=== PATIENT | male | born 1975 | race Caucasian/White ===

== ENCOUNTER → 2018-01-01 14:24 | Outpatient (CLI) | payer OTHER, SELFPAY ==
[2018-01-01 14:49] LABS: Basophils # 0.1 K/mm3 (0-0.2); Basophils % 0.7 % (0.1-2.0); Eosinophils # 0.5 K/mm3 (0.0-0.4); Eosinophils % 6.6 % (0.1-12.0); Hematocrit 41.8 % (42.0-52.0); Hemoglobin 14.1 g/dL (14.1-18.0); Lymphocytes # 2.2 K/mm3 (0.7-4.5); Lymphocytes % 27.4 K/mm3 (10-50); Mean Corpuscular HGB Conc 33.8 g/dL (31.8-35.4); Mean Corpuscular Hemoglobin 31.2 pg (27.0-31.2); Mean Corpuscular Volume 92.4 fl (80-94); Mean Platelet Volume 7.3 fl (7.4-10.4); Monocytes # 0.4 K/mm3 (0.1-1.0); Monocytes % 5.1 % (1.7-9.3); Neutrophils # 4.9 K/mm3 (1.8-7.8); Neutrophils % 60.3 % (37.0-80.0); Platelet Count 258 K/mm3 (142-424); Red Blood Count 4.52 M/mm3 (4.60-6.20); Red Cell Distribution Width 12.4 % (11.5-17.5); White Blood Count 8.1 K/mm3 (4.8-10.8)
[2018-01-01 18:21] LABS: Alanine Aminotransferase 29 U/L (12-78); Albumin/Globulin Ratio 1.5 (1.1-1.8); Alkaline Phosphatase 91 U/L (46-116); Anion Gap 9.5 mEq/L (5-15); Aspartate Amino Transferase 13 U/L (15-37); Bilirubin,Total 0.5 mg/dL (0.2-1.0); Blood Urea Nitrogen 11 mg/dL (7-18); Calcium 8.9 mg/dL (8.5-10.1); Carbon Dioxide 29 mmol/L (21.0-32.0); Chloride 99 mmol/L (98-107); Creatinine,Serum 0.95 mg/dL (0.70-1.30); Estimated Glomerular Filt Rate 86 ml/min (>60); GFR (African American) 104 ML/MIN (>60); Globulin 2.6 gm/dl (1.3-3.2); Glucose 155 mg/dL (74-106); Potassium 4.5 mmoL/L (3.5-5.1); Sodium 133 mmol/L (136-145); Total Protein,Serum 6.6 gm/dL (6.4-8.2)
== END ==
PROVIDERS: PCP Family Medicine; Visit Provider Otolaryngology
DX: Z01.810 Encounter for preprocedural cardiovascular examination (principal); Z01.812 Encounter for preprocedural laboratory examination
CPT/HCPCS: 36415; 80053; 85025; 93005

== ENCOUNTER 2018-01-09 08:04 | Day surgery (SDC) | payer OTHER, SELFPAY ==
[2018-01-07 12:37] VITALS: BMI 23.7
[2018-01-09] VITALS (8 sets, daily range): BP systolic 103–119; BP diastolic 59–73; PULSE 63–79; RESP 16–18; TEMP 36.1–36.7; O2SAT 93–98
--- NOTE | 2018-01-09 10:30 | P.PN_ITS ---
[facility] Anesthesia Checklist - Patient Identification Patient Identification: Arm Band - Structural Data Admitted From: Home Planned Operative Procedure/s: microlaryngoscopy, removal of cyst posterior pharnx Consent for Planned Operative Procedure(s) Verified: Yes Verified Documents: Surgical Consent, History and Physical - NPO Status Verified Time NPO: 00:00 - Additional verifications Anesthesia Reactions: No - Airway Assessment C-Spine Mobility Assessed: Yes (mp2) TMJ Mobility Assessed: Yes Dentition: Good Dentition - Neurological Assessment Level of Consciousness: Awake, Alert - Anesthesia Plan Anesthesia Risk discussed: Yes Anesthesia Plan: Verified ASA Class: II Anesthesia Type: General [facility] Anesthesia HX I have reviewed the patient's past medical history: Yes Medical History: Reports:: Anxiety, Diabetes Mellitus Type 2 (NIDDM), Gastroesophageal Reflux Disease(GERD), Hypertension Denies:: Cancer, Diabetes Mellitus Type 1, MRSA, Seizures Other Medical History: Reports: Other (smoker). Denies: Blood Transfusion Reaction Laterality Cases: Bilateral: Tonsillectomy, Other Amputation: No Fractures: No *Family Hx:: Asthma, Diabetes, Heart Attack, Stroke
--- NOTE | 2018-01-09 10:30 | HMH.ANESI ---
[facility] Anesthesia Record Part I Intake, IV Amount: 600 Estimated blood loss (mL): 5 Urine output (mL): 0 Blood Pressure: 118/66 SaO2: 96 Pulse Rate: 79 Respiratory Rate: 16 Temperature: 97.8 F Patient is:: Drowsy, Stable Stable to PACU at:: 10:20
--- NOTE | 2018-01-09 10:30 | HMH.ANESII ---
[facility] Anesthesia Record Part II Discharge Time: 10:50 Destination: [facility] PACU nurse assessment reviewed?: Yes Patient Condition:: Good Anesthesia Complications:: None
--- NOTE | 2018-01-09 10:31 | P.PN_ITS ---
[facility] Anesthesia Record Part II Discharge Time: 10:50 Destination: [facility] PACU nurse assessment reviewed?: Yes Patient Condition:: Good Anesthesia Complications:: None
--- NOTE | 2018-01-09 10:56 | PC.NURSE ---
1020-10 liters humidified O2 applied upon arrival to PACU. FSBS 131
--- NOTE | 2018-01-09 15:12 | HMH.OPNOTE ---
Date of procedure: 01/09/18 Pre-op Diagnosis:: Cyst in pharynx Post-op diagnosis:: same Procedure performed:: Microlaryngoscopy with removal of cyst in pharynx Surgeon:: Josef Lanza MD RADIO INSTALLER:: Matthew Ward Anesthesia: GETA Estimated blood loss (mL): 1 Operative findings:: cyst in pharynx Operative note:: With the patient under general anesthetic using the SlimLine laryngoscope,and the 10 mm telescope, the oral cavity, hypopharynx, larynx and base of tongue were all examined. There was an epidermoid cystic area in the right lower pharyngeal area. Using the large laryngoscopy cup forceps, and the telescope, after the lesion was photographed, the lesion was removed in entirety and submitted. Bleeding was stopped with topical epinephrine. Blood loss was less than 2 cc. The remainder of the examination was noncontributory. The patient tolerated the procedure well and was sent to recovery in good general condition. Condition: stable Disposition: PACU Specimens:: cyst Complications:: none
--- NOTE | 2018-01-09 15:15 | P.OP_ITS ---
Date of procedure: 01/09/18 Pre-op Diagnosis:: Cyst in pharynx Post-op diagnosis:: same Procedure performed:: Microlaryngoscopy with removal of cyst in pharynx Surgeon:: Josef Lanza MD HEAD TURNING MACHINE OPERATOR:: Matthew Ward Anesthesia: GETA Estimated blood loss (mL): 1 Operative findings:: cyst in pharynx Operative note:: With the patient under general anesthetic using the SlimLine laryngoscope,and the 10 mm telescope, the oral cavity, hypopharynx, larynx and base of tongue were all examined. There was an epidermoid cystic area in the right lower pharyngeal area. Using the large laryngoscopy cup forceps, and the telescope, after the lesion was photographed, the lesion was removed in entirety and submitted. Bleeding was stopped with topical epinephrine. Blood loss was less than 2 cc. The remainder of the examination was noncontributory. The patient tolerated the procedure well and was sent to recovery in good general condition. Condition: stable Disposition: PACU Specimens:: cyst Complications:: none
[2018-01-16 15:04] LABS: POC Glucose,Bedside 126 mg/dL (70-110)
[2018-01-16 15:04] LABS: POC Glucose,Bedside 131 mg/dL (70-110)
== END 2018-01-09 11:21 | disposition home or self-care (01) ==
LOC: OR 08:06
PROVIDERS: Family Provider Family Medicine; PCP Family Medicine; Visit Provider Otolaryngology
PROC: (CPT 42808; principal; 2018-01-09 10:30)
DX: J39.2 Other diseases of pharynx (principal)
CPT/HCPCS: 42808; 82962; 96374; J2405

== ENCOUNTER → 2019-08-12 12:02 | Outpatient (CLI) | payer OTHER, SELFPAY ==
--- NOTE | 2019-08-12 12:10 | XR_ITS ---
PROCEDURE: XR CHEST 2V CLINICAL HISTORY: BRONCHITIS Smoker, bronchitis COMPARISON: CXR CHEST(2 VIEWS-NOT PORTABLE) from 03/09/2015 XR CHEST 2V from 08/02/2019 FINDINGS: The cardiomediastinal silhouette and pulmonary vascularity are within normal limits. The lungs are clear without infiltrates, suspicious nodules, or pleural effusions. No acute bony abnormalities. IMPRESSION: No acute findings. Dictated by: Sukhwinder Riley MD 08/12/2019 12:47 Electronically signed by Sukhwinder Riley MD in [place] 08/12/2019 12:47
== END ==
PROVIDERS: PCP Family Medicine; Visit Provider Nurse Practitioner Family
DX: J40 Bronchitis, not specified as acute or chronic (principal)
CPT/HCPCS: 71046

== ENCOUNTER → 2022-08-13 18:17 | Outpatient (CLI) | payer OTHER, SELFPAY ==
--- NOTE | 2022-08-13 18:27 | XR_ITS ---
PROCEDURE INFORMATION: Exam: XR Cervical Spine Exam date and time: 08/13/2022 6:28 PM Age: 46 years old Clinical indication: Radiculopathy; Cervical region TECHNIQUE: Imaging protocol: Radiologic exam of the cervical spine. Views: 2 or 3 views. COMPARISON: DX XR CHEST 2V 08/12/2019 12:12 PM FINDINGS: Bones/joints: Loss of the cervical lordotic curvature. Cervical spondylosis with mild changes of disc degeneration most pronounced at C5-C6. Soft tissues: Unremarkable. IMPRESSION: Cervical spondylosis with mild changes of disc degeneration most pronounced at C5-C6.
== END ==
PROVIDERS: PCP Family Medicine; Visit Provider Family Medicine
DX: M54.12 Radiculopathy, cervical region (principal); M53.82 Other specified dorsopathies, cervical region
CPT/HCPCS: 72040

== ENCOUNTER 2023-11-29 07:47 | Emergency (ER) | payer BC, SELFPAY ==
[2023-11-29 07:49] VITALS: BP 169/94; PULSE 83; RESP 15; TEMP 36.7; O2SAT 96; BMI 23.1
--- NOTE | 2023-11-29 07:55 | PC.NURSE ---
Dr. Victor at [facility] for pt eval
--- NOTE | 2023-11-29 07:57 | XR_ITS ---
FINAL REPORT CLINICAL HISTORY: cough, wheezing FINDINGS: TWO-VIEW CHEST The heart size is normal. The mediastinum is normal. There is bronchial wall thickening consistent with bronchitis. There is no pneumothorax. IMPRESSION: Bronchitis. Reviewed, Interpreted and Dictated by He Cordoba III, MD Transcribed by Janet Bates Authenticated and [facility]
--- NOTE | 2023-11-29 07:58 | ED_ITS ---
Discharge Plan Disposition Patient Disposition: Home, Self-Care Prescriptions Prescriptions: New prednisone 50 mg tablet 50 mg PO DAILY 4 Days Qty: 4 0RF Rx Instructions: Please take your first dose starting 11-30-2023 azithromycin 500 mg tablet See Rx Instructions .ROUTE .COMPLEX Qty: 3 0RF Rx Instructions: For 250 mg dose pack: take 500 mg today (day 1), then 250 mg for 4 days (days 2-5) No Action metformin 1,000 mg tablet 1,000 mg PO BID metoprolol tartrate 100 mg tablet 100 mg PO BID lisinopril-hydrochlorothiazide 20-12.5 mg tablet 1 tab PO ONCE omeprazole magnesium [Prilosec OTC] 20 mg tablet,delayed release (DR/EC) 20 mg PO ONCE citalopram 20 MG tablet 10 mg PO DAILY Patient Comments: benzonatate 100 MG capsule 100 mg PO HS 10 Days Qty: 10 0RF Rx Instructions: Take at bedtime to help with cough cefdinir 300 MG capsule 300 mg PO BID Qty: 20 0RF fluticasone propionate 120 SPR/BOT bottle 2 spr NS DAILY Qty: 1 0RF Rx Instructions: each nostril daily azithromycin 250 MG tablet 1 tab PO DIRECTED albuterol sulfate 8.5 GM HFA aerosol inhaler 1 puff inhalation Q4-6H Patient Comments: INHALE 1 TO 2 PUFFS BY MOUTH 4 TIMES DAILY NEEDED hwwkswdjmwhjlzm-uonojxwau-PM syrup 1 dose PO DIRECTED levofloxacin 500 MG tablet 500 mg PO DAILY Qty: 7 0RF methylprednisolone 4 MG tablets,dose pack 4 mg PO DIRECTED 6 Days Qty: 21 0RF Referrals Follow up/Referrals: Nicholas Gómez MD [Primary Care Provider] - See instructions Activity Restrictions/Add. Instructions Additional Instructions/Restrictions: At this time it was felt you are safe to be discharged home. If new or worse matt symptoms please do not hesitate to return the emergency department. If symptoms persist please follow-up with your family doctor as you are able. Please take your medications as prescribed. Clinical Impressions Clinical Impression: Viral infection of lower respiratory system, Bilateral wheezing Discharge ED Provider: Andrés Victor General Chief Complaint: Shortness of Breath/Dyspnea Stated Complaint: SOA, congestion, Time Seen by Provider: 11/29/23 07:47 Mode of Arrival: Ambulatory Source of Information: Patient Limitations: No Limitations Description of Symptoms (Recalled from ER Triage Doc. by RN): pt presents to ED with c/o shortness of air. pt states I cant get air in or out . pt was seen in [facility] in [place] on saturday, prescribed cough pills and an abx. pt reports taking both with no relief. pt reports symptoms ongoing for alsmot 12 days but symptoms progressing getting worse. History of Present Illness HPI narrative: Patient is a 48-year-old male, smoker with past medical history of yearly recurrent bronchitis, not on oxygen at home, no formal diagnosis of COPD who presents emergency department for evaluation of shortness of breath. Patient has had onset of symptoms including cough, drainage, poor sleep since Saturday. He presented to outside clinic which discharged home with cough medicine and antibiotics, no steroids. Due to persistent dyspnea he presents here for continued evaluation. No other acute complaints at this time. Related Data Home Medications Medication Instructions Recorded Confirmed lisinopril 20 1 tab PO ONCE BLOOD PRESSURE 12/23/17 08/02/19 mg-hydrochlorothiazide 12.5 mg tablet metformin 1,000 mg tablet 1,000 mg PO BID Diabetes 12/23/17 08/02/19 metoprolol tartrate 100 mg tablet 100 mg PO BID BLOOD PRESSURE 12/23/17 08/02/19 omeprazole magnesium 20 mg 20 mg PO ONCE GERD 12/23/17 01/09/18 tablet,delayed release (Prilosec OTC) citalopram 20 mg tablet 10 mg PO DAILY Anxiety 01/07/18 08/02/19 albuterol sulfate 90 mcg/actuation 1 puff inhalation Q4-6H SOA, co ugh 08/02/19 08/02/19 aerosol inhaler azithromycin 250 mg tablet 1 tab PO DIRECTED Cough/cold 08/02/19 08/02/19 pbgmmprifdzbhzz-uduohveipyhpdmr-UL 1 dose PO DIRECTED Cough/cold 08/02/19 08/02/19 2 mg-30 mg-10 mg/5 mL oral syrup Previous Rx's Medication Instructions Recorded levofloxacin 500 mg tablet 500 mg PO DAILY #7 tabs 08/02/19 methylprednisolone 4 mg tablets in 4 mg PO DIRECTED 6 days ##21 08/02/19 a dose pack benzonatate 100 mg capsule 100 mg PO HS 10 days #10 caps 08/09/19 cefdinir 300 mg capsule 300 mg PO BID #20 caps 08/09/19 fluticasone propionate 50 2 spr NS DAILY ##1 08/09/19 mcg/actuation nasal spray,suspension azithromycin 500 mg tablet See Rx Instructions PO .COMPLEX #3 11/29/23 tabs prednisone 50 mg tablet 50 mg PO DAILY 4 days #4 tabs 11/29/23 Allergies Allergy/AdvReac Type Severity Reaction Status Date / Time No Known Allergies Allergy Verified 01/24/18 11:06 [facility] Disclaimer: The information contained in this section may have been updated after the patient was seen, as this information can be updated by other users. Social History Smoking Status: Current every day smoker tobacco type: cigarettes packs per day: 1 second hand exposure: Yes alcohol intake: never substance use type: denies use current occupational status: employed Travel in the last 8 weeks: None household members: spouse housing: house current occupation: [employer] ROS Obtained: Yes Systems reviewed as appropriate & no additional complaints except as documented Physical Exam General General appearance: alert and in no apparent distress Head Head exam: atraumatic and normocephalic Eye Eye exam: Present PERRL and EOMI ENT ENT exam: Present mucous membranes moist Neck Neck exam: Present normal inspection Chest Chest inspection: Present normal inspection and symmetric chest wall rise Respiratory Respiratory exam: Present wheezes (Expiratory phase wheezing in all lung lassiter left greater than right); Absent respiratory distress Cardiovascular Cardiovascular exam: Present regular rate and normal rhythm Abdominal Exam Abdominal exam: Present soft; Absent tenderness Extremities Exam Extremities exam: Present normal inspection Neurological Exam Neurological exam: Present alert Psychiatric Psychiatric exam: Present normal affect Skin Skin exam: Present warm and dry HEART Score HEART Score HEART Score assessment performed?: No Critical Care Critical Care Time Critical Care Time: No Medical Decision Making Valeriano Inquiry Pt receiving controlled substance: No Vital Signs Vital Signs: 11/29/23 07:49 11/29/23 08:00 Temperature 98.0 F Temperature Source Oral Pulse Rate 82 Pulse Rate [Left Radial] 83 Respiratory Rate 15 Blood Pressure 140/92 H Blood Pressure [Right Arm] 169/94 H Blood Pressure Mean 108 Blood Pressure Mean [Right Arm] 119 02 Sat by Pulse Oximetry 96 96 Oxygen Delivery Method Room Air Lab Data Labs: Lab Results 11/29/23 07:05: SARS-CoV-2 (PCR) Not detected, Influenza A Untype (PCR) Not detected, Influenza Type B (PCR) Not detected Response Orders (Tests/Meds): ED MEDICATIONS Discontinued Medications Generic Name Dose Route Start Last Admin Trade Name Kailey PRN Reason Stop Dose Admin Albuterol/Ipratropium 9 ml 11/29/23 07:57 11/29/23 08:08 Ipratropium/Albuterol 3 Ml Neb IH 11/29/23 07:58 9 ml ONCE ONE Administration Prednisone 40 mg 11/29/23 07:57 11/29/23 08:08 Prednisone 20mg Tab PO 11/29/23 07:58 40 mg ONCE ONE Administration ORDERS Category Date Time Status CXR --portable [XR chest portable] Stat Exams 11/29/23 07:57 Taken Rapid PCR Covid and Flu A/B Stat Lab 11/29/23 07:05 Completed MDM Narrative Medical Decision Narrative: In summary patient is a 48-year-old male with past medical history described above presents emergency department for evaluation of shortness of breath and cough. Patient is hemodynamically stable nontoxic-appearing upon arrival, afebrile with expiratory phase wheezing in all lung lassiter left greater than right. Differential diagnosis includes bronchitis, pneumonia, COPD, among others. Workup will be conducted with viral swab and chest x-ray. Hematologic labs were considered but will be deferred. Initial interventions include oral steroids, DuoNebs x 3. Workup reviewed by me, viral swab negative. Chest x-ray informally interpreted by me, no acute lobar opacities or large pneumothorax. Upon repeat evaluation patient had significantly improved air movement. Patient has bronchodilators at home will be discharged with a course of steroids and azithromycin for its anti-inflammatory effects and was given return precautions.
[2023-11-29 08:00] VITALS: BP 140/92; PULSE 82; O2SAT 96
[2023-11-29 08:02] LABS: Coronavirus 19, PCR Not Detected (NotDetected); Influenza A, PCR Not Detected (NotDetected); Influenza B, PCR Not Detected (NotDetected)
[2023-11-29] MEDS: predniSONE 20MG TAB 40 MG PO (08:08)
[2023-11-29] MEDS: IPRATROPIUM/ALBUTEROL 3 ML NEB 9 ML IH (08:08)
[2023-11-29 08:57] VITALS: BP 142/91; PULSE 89; RESP 16; TEMP 36.7; O2SAT 96
== END 2023-11-29 08:57 | disposition home or self-care (01) ==
PROVIDERS: Emergency Provider Emergency Medicine; PCP Family Medicine
DX: R06.02 Shortness of breath (principal); R05.9 Cough, unspecified; J22 Unspecified acute lower respiratory infection; F17.210 Nicotine dependence, cigarettes, uncomplicated
CPT/HCPCS: 71045; 87636; 99283

== ENCOUNTER 2024-07-28 15:32 | Emergency (ER) | payer BC, SELFPAY ==
[2024-07-28 15:33] VITALS: BP 152/97; PULSE 83; RESP 15; TEMP 36.8; O2SAT 96; BMI 22.6
--- NOTE | 2024-07-28 15:34 | HMH.EDGENADL ---
Discharge Plan Disposition Patient Disposition: Home, Self-Care Condition: Good Prescriptions Prescriptions: New prednisone 50 mg tablet 50 mg PO DAILY 5 Days Qty: 5 0RF albuterol sulfate 90 mcg/actuation HFA aerosol inhaler 2 inh inhalation Q4H PRN (Reason: shortness of breath or wheezing) Qty: 18 0RF [id number] [Bromfed DM] 2-30-10 mg/5 mL syrup 5 ml PO Q4H PRN (Reason: cold symptoms) Qty: 30 0RF amoxicillin-pot clavulanate 875-125 mg tablet 1 tab PO BID Qty: 20 0RF azithromycin 500 mg tablet 500 mg PO DAILY 10 Days Qty: 10 0RF No Action metformin 1,000 mg tablet 1,000 mg PO BID metoprolol tartrate 100 mg tablet 100 mg PO BID lisinopril-hydrochlorothiazide 20-12.5 mg tablet 1 tab PO ONCE omeprazole magnesium [Prilosec OTC] 20 mg tablet,delayed release (DR/EC) 20 mg PO ONCE citalopram 20 MG tablet 10 mg PO DAILY Patient Comments: benzonatate 100 MG capsule 100 mg PO HS 10 Days Qty: 10 0RF Rx Instructions: Take at bedtime to help with cough cefdinir 300 MG capsule 300 mg PO BID Qty: 20 0RF fluticasone propionate 120 SPR/BOT bottle 2 spr NS DAILY Qty: 1 0RF Rx Instructions: each nostril daily azithromycin 250 MG tablet 1 tab PO DIRECTED albuterol sulfate 8.5 GM HFA aerosol inhaler 1 puff inhalation Q4-6H Patient Comments: INHALE 1 TO 2 PUFFS BY MOUTH 4 TIMES DAILY NEEDED zoykccsgrwkscnm-ybizjdskp-NR 230-10/5 syrup 1 dose PO DIRECTED levofloxacin 500 MG tablet 500 mg PO DAILY Qty: 7 0RF methylprednisolone 4 MG tablets,dose pack 4 mg PO DIRECTED 6 Days Qty: 21 0RF prednisone 50 mg tablet 50 mg PO DAILY 4 Days Qty: 4 0RF Rx Instructions: Please take your first dose starting 11-30-2023 azithromycin 500 mg tablet See Rx Instructions .ROUTE .COMPLEX Qty: 3 0RF Rx Instructions: For 250 mg dose pack: take 500 mg today (day 1), then 250 mg for 4 days (days 2-5) Referrals Follow up/Referrals: Nicholas Gómez MD [Primary Care Provider] - See instructions Sarah Courtney MD [Physician] - See instructions Activity Restrictions/Add. Instructions Additional Instructions/Restrictions: Follow-up with your PCP within 48 hours for recheck. Return to ER for any worsening signs or symptoms. I have referred you to pulmonology as we discussed. Please call to make an appointment in the morning. Clinical Impressions Clinical Impression: Atypical pneumonia, Chronic obstructive pulmonary disease with (acute) exacerbation Instructions Patient Instructions: DI for Chronic Obstructive Pulmonary Disease, DI for Pneumonia -- Adult Print Language Print Language: Prydeinig Discharge ED Provider: Neptali Singh General Adult HPI <ABDI Pina - Last Filed: 07/28/24 17:20> General Chief complaint: Upper Respiratory Infection Stated complaint: cough,whezzy , SOA Time Seen by Provider: 07/28/24 15:33 History of Present Illness HPI narrative: Patient presented for evaluation of cough and wheezing. Patient gives a history of 2 weeks of initially upper respiratory type symptoms that he initially treated with Claritin. It did not improve and since last Saturday he feels like he has had bronchitis . He saw his PCP on Saturday who prescribed him a 3-day course of Zithromax. Patient did not improve so I called him yesterday and he put him on 2 mg of dexamethasone and Omnicef. Patient still reports he has wheeze and cough but no fever chills hemoptysis hematochezia melena nausea vomiting diarrhea or chest pain. He is a pack-a-day smoker. Related Data Home Medications ?Medication ?Instructions ?Recorded ?Confirmed lisinopril 20 1 tab PO ONCE BLOOD PRESSURE 12/23/17 08/02/19 mg-hydrochlorothiazide 12.5 mg tablet metformin 1,000 mg tablet 1,000 mg PO BID Diabetes 12/23/17 08/02/19 metoprolol tartrate 100 mg tablet 100 mg PO BID BLOOD PRESSURE 12/23/17 08/02/19 omeprazole magnesium 20 mg 20 mg PO ONCE GERD 12/23/17 01/09/18 tablet,delayed release (Prilosec OTC) citalopram 20 mg tablet 10 mg PO DAILY Anxiety 01/07/18 08/02/19 albuterol sulfate 90 mcg/actuation 1 puff inhalation Q4-6H SOA, co ugh 08/02/19 08/02/19 aerosol inhaler azithromycin 250 mg tablet 1 tab PO DIRECTED Cough/cold 08/02/19 08/02/19 mvardpbcgdanepu-xvoqhfxgqrglkzy-SW 1 dose PO DIRECTED Cough/cold 08/02/19 08/02/19 2 mg-30 mg-10 mg/5 mL oral syrup Previous Rx's ?Medication ?Instructions ?Recorded levofloxacin 500 mg tablet 500 mg PO DAILY #7 tabs 08/02/19 methylprednisolone 4 mg tablets in 4 mg PO DIRECTED 6 days ##21 08/02/19 a dose pack benzonatate 100 mg capsule 100 mg PO HS 10 days #10 caps 08/09/19 cefdinir 300 mg capsule 300 mg PO BID #20 caps 08/09/19 fluticasone propionate 50 2 spr NS DAILY ##1 08/09/19 mcg/actuation nasal spray,suspension azithromycin 500 mg tablet See Rx Instructions PO .COMPLEX #3 11/29/23 tabs prednisone 50 mg tablet 50 mg PO DAILY 4 days #4 tabs 11/29/23 albuterol sulfate 90 mcg/actuation 2 inh inhalation Q4H PRN shortness 07/28/24 aerosol inhaler of breath or wheezing #18 grams amoxicillin 875 mg-potassium 1 tab PO BID #20 tabs 07/28/24 clavulanate 125 mg tablet azithromycin 500 mg tablet 500 mg PO DAILY 10 days #10 tabs 07/28/24 drqqphzpdxalrra-vtqltdwvrvalmqo-ZC 5 ml PO Q4H PRN cold symptoms #30 07/28/24 2 mg-30 mg-10 mg/5 mL oral syrup mL (Bromfed DM) prednisone 50 mg tablet 50 mg PO DAILY 5 days #5 tabs 07/28/24 Allergies Allergy/AdvReac Type Severity Reaction Status Date / Time No Known Allergies Allergy Verified 01/24/18 11:06 [facility] <ABDI Pina - Last Filed: 07/28/24 17:20> [facility] Disclaimer: The information contained in this section may have been updated after the patient was seen, as this information can be updated by other users. Social History Smoking Status: Current every day smoker tobacco type: cigarettes packs per day: 1 second hand exposure: Yes alcohol intake: never substance use type: denies use current occupational status: employed Travel in the last 8 weeks: None household members: spouse housing: house current occupation: [employer] <ABDI Pina - Last Filed: 07/28/24 17:20> ROS Obtained: Yes Systems reviewed as appropriate & no additional complaints except as documented Physical Exam <ABDI Pina - Last Filed: 07/28/24 17:20> General General appearance: alert and in no apparent distress Respiratory Respiratory exam: Present normal lung sounds bilaterally Cardiovascular Cardiovascular exam: Present regular rate and normal rhythm Neurological Exam Neurological exam: Present alert and oriented X3 Medical Decision Making <ABDI Pina - Last Filed: 07/28/24 17:20> Medical Records Medical records reviewed: Yes I reviewed the patient's medical records. Valeriano Inquiry Pt receiving controlled substance: No Vital Signs: 07/28/24 15:33 07/28/24 16:00 07/28/24 16:30 Temperature 98.3 F Temperature Source Oral Pulse Rate 91 H 102 H Pulse Rate [Left Radial] 83 Respiratory Rate 15 Blood Pressure 143/89 H 141/84 H Blood Pressure [Right Arm] 152/97 H Blood Pressure Mean [Right Arm] 115 Blood Pressure Source Blood Pressure Position 02 Sat by Pulse Oximetry 96 100 96 Oxygen Delivery Method Room Air Room Air Room Air 07/28/24 17:00 07/28/24 17:33 Temperature 98.3 F Temperature Source Oral Pulse Rate 94 H 94 H Pulse Rate [Left Radial] Respiratory Rate 15 Blood Pressure 139/76 139/76 Blood Pressure [Right Arm] Blood Pressure Mean [Right Arm] Blood Pressure Source Automatic Cuff Blood Pressure Position Sitting 02 Sat by Pulse Oximetry 92 L Oxygen Delivery Method Room Air Room Air Lab Data Lab results reviewed: Yes I reviewed the patient's lab results. Lab Results 07/28/24 15:40: WBC 10.1, RBC 4.70, Hgb 15.0, Hct 45.0, MCV 95.7 H, MCH 32.0 H, MCHC 33.4, RDW 13.8, Plt Count 334, MPV 7.6, Neut % (Auto) 81.9 H, Lymph % (Auto) 12.8, Barron % (Auto) 4.6, Eos % (Auto) 0.3, Baso % (Auto) 0.4, Neut # (Auto) 8.3 H, Lymph # (Auto) 1.3, Barron # (Auto) 0.5, Eos # (Auto) 0.0, Baso # (Auto) 0.0, Sodium 129 L, Potassium 4.5, Chloride 98, Carbon Dioxide 27, Anion Gap 8.5, BUN 10, Creatinine 0.80, Estimated Creat Clear 115, Estimated GFR 102, Est GFR ( Amer) 124, Glucose 142 H, Calcium 8.8, Magnesium 1.6, Total Bilirubin 1.0, AST 28, ALT 27, Alkaline Phosphatase 85, NT-Pro-B Natriuret Pep 54.0, Total Protein 7.0, Albumin 4.4, Globulin 2.6, Albumin/Globulin Ratio 1.7 07/28/24 15:46: SARS-CoV-2 (PCR) Not detected, Influenza A Untype (PCR) Not detected, Influenza Type B (PCR) Not detected 07/28/24 16:06: VBG pH 7.36, VBG pCO2 40.7, VBG pO2 48.8 H, VBG HCO3 22.6 L, VBG Total CO2 23.9, VBG O2 Saturation 84.2 H, VBG Base Excess -2.8 L, VBG Lactic Acid 2.0 07/28/24 15:40 07/28/24 15:40 Orders (Tests/Meds): ED MEDICATIONS Discontinued Medications Generic Name Dose Route Start Last Admin Trade Name Freq PRN Reason Stop Dose Admin Albuterol/Ipratropium 9 ml 07/28/24 15:46 07/28/24 15:53 Ipratropium/Albuterol 3 Ml Neb IH 07/28/24 15:47 9 ml ONCE ONE Administration Amoxicillin/Clavulanate Potassium 1 each 07/28/24 17:20 07/28/24 17:27 Amoxicillin/Clavulanate Potassium 875/125mg Tablet PO 07/28/24 17:21 1 each ONCE ONE Administration Azithromycin 500 mg 07/28/24 17:20 07/28/24 17:27 Azithromycin 250mg Tablet PO 07/28/24 17:21 500 mg ONCE ONE Administration Dexamethasone Sodium Phosphate 10 mg 07/28/24 15:46 07/28/24 15:53 Dexamethasone 4mg/Ml 5ml Mdv IV 07/28/24 15:47 10 mg ONCE ONE Administration Magnesium Sulfate 2 gm in 50 mls @ 50 mls/hr 07/28/24 15:46 07/28/24 15:53 Magnesium Sulfate 2gm/50ml Premix IV 07/28/24 16:45 50 mls/hr ONCE ONE Administration Sodium Chloride 10 ml 07/28/24 16:08 Sodium Chloride 0.9% 10ml Flush Syringe IV 08/27/24 16:07 NEEDED PRN Maintain IV Site ORDERS Category Date Time Status Chest XR 2 view (NOT portable) [XR chest 2V] Stat Exams 07/28/24 15:46 Completed BNP [NT Pro Brain Natriuretic Pep.] Stat Lab 07/28/24 15:40 Completed CBC w/Auto Diff [Complete Blood Count Auto Diff] Stat Lab 07/28/24 15:40 Completed CMP [Comprehensive Metabolic Panel] Stat Lab 07/28/24 15:40 Completed Magnesium Stat Lab 07/28/24 15:40 Completed Rapid PCR Covid and Flu A/B Stat Lab 07/28/24 15:46 Completed VBG [Venous Blood Gas] Stat RT 07/28/24 16:06 Completed Medical Decision Narrative: In summary patient is a 48-year-old male who presents to the emergency department for evaluation of cough and wheezing. Patient is hemodynamically stable upon arrival, afebrile. Physical exam is remarkable for clear breath sounds to the bases without any adventitious sounds, normal sinus rhythm on the bedside monitor. Differential diagnosis includes bronchitis although patient does not really have any symptoms and that is his cough is dry and not coarse, postviral cough, pneumonia etc. Initial workup will be conducted with hematologic labs rapid COVID and flu swab plain film chest x-ray. Initial interventions include Decadron DuoNeb. Initial workup reviewed by me shows that his hematologic labs are nonactionable with a normal white count but does have a neutrophilic shift and a sodium of 129 slightly elevated glucose of 142 and negative COVID and flu swabs. My informal interpretation of his x-ray however is suggestive of right lower lobe pneumonia. Upon repeat evaluation patient is feeling somewhat better but still reports that it is difficult to breathe . But repeat auscultation shows his breath sounds still clear satting at 96% on room air. Given this patient likely has an element of COPD as well as a probable atypical pneumonia. I have given a prescription for Augmentin Zithromax and a metered-dose inhaler and a course of steroids. Patient to follow-up with his PCP within 48 hours. Patient given strict return precautions. <Neptali Singh MD - Last Filed: 07/28/24 18:09> Vital Signs: 07/28/24 15:33 07/28/24 16:00 07/28/24 16:30 Temperature 98.3 F Temperature Source Oral Pulse Rate 91 H 102 H Pulse Rate [Left Radial] 83 Respiratory Rate 15 Blood Pressure 143/89 H 141/84 H Blood Pressure [Right Arm] 152/97 H Blood Pressure Mean [Right Arm] 115 Blood Pressure Source Blood Pressure Position 02 Sat by Pulse Oximetry 96 100 96 Oxygen Delivery Method Room Air Room Air Room Air 07/28/24 17:00 07/28/24 17:33 Temperature 98.3 F Temperature Source Oral Pulse Rate 94 H 94 H Pulse Rate [Left Radial] Respiratory Rate 15 Blood Pressure 139/76 139/76 Blood Pressure [Right Arm] Blood Pressure Mean [Right Arm] Blood Pressure Source Automatic Cuff Blood Pressure Position Sitting 02 Sat by Pulse Oximetry 92 L Oxygen Delivery Method Room Air Room Air Lab Data Lab Results 07/28/24 15:40: WBC 10.1, RBC 4.70, Hgb 15.0, Hct 45.0, MCV 95.7 H, MCH 32.0 H, MCHC 33.4, RDW 13.8, Plt Count 334, MPV 7.6, Neut % (Auto) 81.9 H, Lymph % (Auto) 12.8, Barron % (Auto) 4.6, Eos % (Auto) 0.3, Baso % (Auto) 0.4, Neut # (Auto) 8.3 H, Lymph # (Auto) 1.3, Barron # (Auto) 0.5, Eos # (Auto) 0.0, Baso # (Auto) 0.0, Sodium 129 L, Potassium 4.5, Chloride 98, Carbon Dioxide 27, Anion Gap 8.5, BUN 10, Creatinine 0.80, Estimated Creat Clear 115, Estimated GFR 102, Est GFR ( Amer) 124, Glucose 142 H, Calcium 8.8, Magnesium 1.6, Total Bilirubin 1.0, AST 28, ALT 27, Alkaline Phosphatase 85, NT-Pro-B Natriuret Pep 54.0, Total Protein 7.0, Albumin 4.4, Globulin 2.6, Albumin/Globulin Ratio 1.7 07/28/24 15:46: SARS-CoV-2 (PCR) Not detected, Influenza A Untype (PCR) Not detected, Influenza Type B (PCR) Not detected 07/28/24 16:06: VBG pH 7.36, VBG pCO2 40.7, VBG pO2 48.8 H, VBG HCO3 22.6 L, VBG Total CO2 23.9, VBG O2 Saturation 84.2 H, VBG Base Excess -2.8 L, VBG Lactic Acid 2.0 Orders (Tests/Meds): ED MEDICATIONS Discontinued Medications Generic Name Dose Route Start Last Admin Trade Name Freq PRN Reason Stop Dose Admin Albuterol/Ipratropium 9 ml 07/28/24 15:46 07/28/24 15:53 Ipratropium/Albuterol 3 Ml Neb IH 07/28/24 15:47 9 ml ONCE ONE Administration Amoxicillin/Clavulanate Potassium 1 each 07/28/24 17:20 07/28/24 17:27 Amoxicillin/Clavulanate Potassium 875/125mg Tablet PO 07/28/24 17:21 1 each ONCE ONE Administration Azithromycin 500 mg 07/28/24 17:20 07/28/24 17:27 Azithromycin 250mg Tablet PO 07/28/24 17:21 500 mg ONCE ONE Administration Dexamethasone Sodium Phosphate 10 mg 07/28/24 15:46 07/28/24 15:53 Dexamethasone 4mg/Ml 5ml Mdv IV 07/28/24 15:47 10 mg ONCE ONE Administration Magnesium Sulfate 2 gm in 50 mls @ 50 mls/hr 07/28/24 15:46 07/28/24 15:53 Magnesium Sulfate 2gm/50ml Premix IV 07/28/24 16:45 50 mls/hr ONCE ONE Administration Sodium Chloride 10 ml 07/28/24 16:08 Sodium Chloride 0.9% 10ml Flush Syringe IV 08/27/24 16:07 NEEDED PRN Maintain IV Site ORDERS Category Date Time Status Chest XR 2 view (NOT portable) [XR chest 2V] Stat Exams 07/28/24 15:46 Completed BNP [NT Pro Brain Natriuretic Pep.] Stat Lab 07/28/24 15:40 Completed CBC w/Auto Diff [Complete Blood Count Auto Diff] Stat Lab 09/10/24 15:40 Completed CMP [Comprehensive Metabolic Panel] Stat Lab 07/28/24 15:40 Completed Magnesium Stat Lab 07/28/24 15:40 Completed Rapid PCR Covid and Flu A/B Stat Lab 07/28/24 15:46 Completed VBG [Venous Blood Gas] Stat RT 07/28/24 16:06 Completed Medical Decision Narrative: In summary patient is a 48-year-old male who presents to the emergency department for evaluation of cough and wheezing. Patient is hemodynamically stable upon arrival, afebrile. Physical exam is remarkable for clear breath sounds to the bases without any adventitious sounds, normal sinus rhythm on the bedside monitor. Differential diagnosis includes bronchitis although patient does not really have any symptoms and that is his cough is dry and not coarse, postviral cough, pneumonia etc. Initial workup will be conducted with hematologic labs rapid COVID and flu swab plain film chest x-ray. Initial interventions include Decadron DuoNeb. Initial workup reviewed by me shows that his hematologic labs are nonactionable with a normal white count but does have a neutrophilic shift and a sodium of 129 slightly elevated glucose of 142 and negative COVID and flu swabs. My informal interpretation of his x-ray however is suggestive of right lower lobe pneumonia. Upon repeat evaluation patient is feeling somewhat better but still reports that it is difficult to breathe . But repeat auscultation shows his breath sounds still clear satting at 96% on room air. Given this patient likely has an element of COPD as well as a probable atypical pneumonia. I have given a prescription for Augmentin Zithromax and a metered-dose inhaler and a course of steroids. Patient to follow-up with his PCP within 48 hours. Patient given strict return precautions. I was consulted by the JESS, and we discussed the complexity of the problems being addressed. I approved the treatment and management plan for this patient's care in the Emergency Department, thus performing a substantive portion of the medical decision making. Neptali Singh MD Critical Care <ABDI Pina - Last Filed: 07/28/24 17:20> Critical Care Time Critical Care Time: No
[2024-07-28 15:43] VITALS: BMI 22.6
--- NOTE | 2024-07-28 15:43 | PC.NURSE ---
Michael PARRY at BS for pt eval
--- NOTE | 2024-07-28 15:46 | XR_ITS ---
PROCEDURE INFORMATION: Exam: XR Chest Exam date and time: 07/28/2024 4:16 PM Age: 48 years old Clinical indication: Cough and wheezing; Additional info: Cough and wheezing. PT states pcp dx with bronchitis that is not getting better TECHNIQUE: Imaging protocol: Radiologic exam of the chest. Views: 2 views. COMPARISON: 1. CR XR CHEST PORTABLE 11/29/2023 8:20 AM 2. DX XR CHEST 2V 08/12/2019 12:12 PM FINDINGS: Lungs: Unremarkable. No consolidation. Pleural spaces: Unremarkable. No pleural effusion. No pneumothorax. Heart/Mediastinum: Unremarkable. No cardiomegaly. Bones/joints: Unremarkable. IMPRESSION: Stable chest x-ray with no acute disease.
--- NOTE | 2024-07-28 15:50 | PC.NURSE ---
Notified RT of VBG order
[2024-07-28 15:51] LABS: Coronavirus 19, PCR Not Detected (NotDetected); Influenza A, PCR Not Detected (NotDetected); Influenza B, PCR Not Detected (NotDetected)
[2024-07-28] MEDS: MAGNESIUM SULFATE IN WATER 2 GM/50 ML PIGGYBACK IV (15:53)
[2024-07-28] MEDS: DEXAMETHASONE 4MG/ML 5ML MDV 10 MG IV (15:53)
[2024-07-28] MEDS: IPRATROPIUM/ALBUTEROL 3 ML NEB 9 ML IH (15:53)
[2024-07-28 15:56] LABS: Albumin Level 4.4 g/dl (3.5-5.0); Chloride 98 mmol/L (98-107); Sodium 129 mmol/L (136-145)
[2024-07-28 15:57] LABS: Potassium 4.5 mmoL/L (3.5-5.1)
[2024-07-28 15:57] LABS: VBG Base Excess -2.8 mmol/L (-2.4-2.3); VBG HCO3 22.6 mmol/L (23-30); VBG Oxygen Saturation 84.2 % (50-70); VBG PCO2 40.7 mmol/L (35-51); VBG PH 7.36 mmol/L (7.31-7.41); VBG PO2 48.8 mmol/L (28-40); VBG Total CO2 23.9 mmol/L (23-27)
[2024-07-28 15:59] LABS: Alanine Aminotransferase 27 U/L (12-78); Albumin/Globulin Ratio 1.7 (1.1-1.8); Alkaline Phosphatase 85 U/L (38-126); Anion Gap 8.5 mEq/L (5-15); Aspartate Amino Transferase 28 U/L (17-59); Blood Urea Nitrogen 10 mg/dl (9-20); Carbon Dioxide 27 mmol/L (22.0-30.0); Creatinine Clearance Estimated 115 mL/min (50-200); Estimated Glomerular Filt Rate 102 ml/min (>60); GFR (African American) 124 ML/MIN (>60); Globulin 2.6 g/dL (1.3-3.2)
[2024-07-28 16:00] VITALS: BP 143/89; PULSE 91; O2SAT 100
[2024-07-28 16:00] LABS: Basophils % 0.4 % (0.1-2.0); Calcium 8.8 mg/dl (8.4-10.2); Eosinophils % 0.3 % (0.1-12.0); Glucose 142 mg/dl (74-100); Lymphocytes # 1.3 K/mm3 (0.7-4.5); Lymphocytes % 12.8 % (10-50); Magnesium 1.6 mg/dl (1.6-2.3); Mean Corpuscular HGB Conc 33.4 g/dL (31.8-35.4); Mean Corpuscular Volume 95.7 fl (80-94); Mean Platelet Volume 7.6 fl (7.4-10.4); Monocytes # 0.5 K/mm3 (0.1-1.0); Monocytes % 4.6 % (1.7-9.3); Neutrophils # 8.3 K/mm3 (1.8-7.8); Neutrophils % 81.9 % (37.0-80.0); Platelet Count 334 K/mm3 (142-424); Red Cell Distribution Width 13.8 % (11.5-17.5); White Blood Count 10.1 K/mm3 (4.8-10.8)
[2024-07-28 16:30] VITALS: BP 141/84; PULSE 102; O2SAT 96
[2024-07-28 17:00] VITALS: BP 139/76; PULSE 94; O2SAT 92
[2024-07-28] MEDS: AZITHROMYCIN 250MG TABLET 500 MG PO (17:27)
[2024-07-28] MEDS: AMOXICILLIN/CLAVULANATE POTASSIUM 875/125MG TABLET 1 EACH PO (17:27)
[2024-07-28 17:33] VITALS: BP 139/76; PULSE 94; RESP 15; TEMP 36.8; O2SAT 92
[2024-07-31 22:05] LABS: Legionella pneumophila Urinary Negative (Negative)
== END 2024-07-28 17:34 | disposition home or self-care (01) ==
PROVIDERS: Physician Assistant; Emergency Provider Emergency Medicine; PCP Family Medicine
DX: J18.9 Pneumonia, unspecified organism (principal); J44.1 Chronic obstructive pulmonary disease with (acute) exacerbation; R06.2 Wheezing; E87.1 Hypo-osmolality and hyponatremia; F17.210 Nicotine dependence, cigarettes, uncomplicated
CPT/HCPCS: 71046; 80053; 82803; 83735; 83880; 85025; 87636; 96365; 96375; 99284; J1100; J3475; J7620

== ENCOUNTER 2025-08-02 07:25 | Day surgery (SDC) | payer BC, SELFPAY ==
--- NOTE | 2025-07-28 12:55 | P.HP_ITS ---
History of Present Illness *Admission Date: 08/02/25 *History of present illness: Mr. Khan is a 49-year-old gentleman who is here for initial screening colonoscopy. The patient's father had a malignant polyp and had colon resection in his early 50s. The patient reports no abdominal pain, weight loss, change in his bowel habits or rectal bleeding. The examination is deemed medically necessary for screening colonoscopy. The patient has been seen, interviewed and examined prior to the procedure by both myself and the anesthesia provider. [facility] Disclaimer: The information contained in this section may have been updated after the patient was seen, as this information can be updated by other users. Medical History (Updated 08/02/25 @ 08:46 by Fernando Iyer II, MD) GERD (gastroesophageal reflux disease) Anxiety Diabetes mellitus, type 2 Hypertension Pneumonia COPD (chronic obstructive pulmonary disease) Family History (Updated 08/02/25 @ 08:00 by Kelin Pepper RN) Other No significant family history Social History (Updated 08/02/25 @ 08:01 by Kelin Pepper RN) Smoking Status: Current every day smoker tobacco type: cigarettes packs per day: 1 second hand exposure: Yes alcohol intake: never substance use type: denies use current occupational status: employed Travel in the last 8 weeks?: None household members: spouse housing: house current occupation: [employer] caffeine: Yes Have you lived/traveled outside [place] in past 30 days?: No Contact w/someone who lives/traveled outside [place] past 30 days?: No Exposure to someone with infectious disease in past 14 days?: No Do you have a fever (greater than 100.4 F or 38 C)?: No Have you tested positive for COVID-19?: No Exposed to someone with COVID-19 in past 14 days?: No Do you have a sore throat?: No Do you have a cough?: No Do you have any weakness?: No Are you experiencing any nausea/vomitting?: No Do you have any diarrhea?: No Are you experiencing any unusual bleeding?: No Do you have any muscle aches/pain?: No Do you have any abdominal pain?: No Are you experiencing loss of taste or smell?: No Other Medical History Have you received the Flu Vaccine for this season: No Have you received the Pneumonia Vaccine: No Review of Systems Review of Systems Review of systems (narrative): Negative *Cardiovascular Comments: Negative *Gastrointestinal Comments: Negative *Genitourinary Comments: Negative *Musculoskeletal Comments: Negative *Neurologic Comments: Negative Meds Home Medications and Allergies Home Medications ?Medication ?Instructions ?Recorded ?Confirmed ?Type lisinopril 20 1 tab PO ONCE BLOOD PRESSURE 12/23/17 08/02/25 History mg-hydrochlorothiazide 12.5 mg tablet metformin 1,000 mg tablet 1,000 mg PO BID Diabetes 04/0408/02/25 History metoprolol tartrate 100 mg tablet 100 mg PO BID BLOOD PRESSURE 12/23/17 08/02/25 History omeprazole magnesium 20 mg 20 mg PO ONCE GERD 12/23/17 08/02/25 History tablet,delayed release (Prilosec OTC) sodium,potassium,mag sulfates 17.5 See Rx Instructions PO .COMPLEX 07/20/25 Rx gram-3.13 gram-1.6 gram oral soln #354 mL (Suprep Bowel Prep Kit) lovastatin 20 mg tablet 20 mg PO DAILY 08/02/2507/19 History New Prescriptions to Start Prescriptions: Allergies Allergy/AdvReac Type Severity Reaction Status Date / Time No Known Allergies Allergy Verified 08/02/25 07:59 Exam *Routine HEENT Exam Head: Present normocephalic Eye: Present EOMI and PERRL ENT: Present mucous membranes moist *Routine Neck Exam Neck: Present supple *Routine Respiratory Exam Respiratory: Present CTA bilaterally *Routine Cardiovascular Exam Cardiovascular: Present RRR *Routine Abdominal Exam Abdominal: Present soft and normoactive bowel sounds; Absent tenderness *Routine Rectal Exam Rectal:: deferred *Routine Genitalia Exam Genitalia:: deferred *Routine Extremities Exam Extremities: Absent cyanosis, clubbing or edema *Routine Skin Exam Skin: Present warm; Absent rash *Routine Neurological Exam Neurological: Present alert and oriented X3 Assessment and Plan *Assessment and plan (1) Screening for colon cancer: Status: Acute Category: Medical Code(s): Z12.11 - Encounter for screening for malignant neoplasm of colon (2) Family history of colon cancer in father: Status: Acute Category: Medical Code(s): Z80.0 - Family history of malignant neoplasm of digestive organs Plan A/P: 1. Screening for colon cancer is the preprocedural diagnosis. The patient's father had a malignant colon polyp removed surgically. The patient will be anesthetized/sedated using MAC sedation. The patient has been seen and examined. Cardiac and lung assessment prior to the examination is stable. Proceed with planned screening colonoscopy.
[2025-07-28 13:15] VITALS: BMI 24.7
[2025-08-02 07:57] VITALS: BP 134/78; PULSE 80; RESP 18; TEMP 36.7; O2SAT 97
[2025-08-02] MEDS: LACTATED RINGERS 1000ML 1,000 ML 50 ML IV (08:10)
--- NOTE | 2025-08-02 08:15 | EXP.ANES.CKL ---
[facility] Disclaimer: The information contained in this section may have been updated after the patient was seen, as this information can be updated by other users. Medical History GERD (gastroesophageal reflux disease) Anxiety Diabetes mellitus, type 2 Hypertension Pneumonia COPD (chronic obstructive pulmonary disease) Family History (Updated 08/02/25 @ 08:00 by Kelin Pepper RN) Other No significant family history Social History (Updated 08/02/25 @ 08:01 by Kelin Pepper RN) Smoking Status: Current every day smoker tobacco type: cigarettes packs per day: 1 second hand exposure: Yes alcohol intake: never substance use type: denies use current occupational status: employed Travel in the last 8 weeks?: None household members: spouse housing: house current occupation: [employer] caffeine: Yes Have you lived/traveled outside [place] in past 30 days?: No Contact w/someone who lives/traveled outside [place] past 30 days?: No Exposure to someone with infectious disease in past 14 days?: No Do you have a fever (greater than 100.4 F or 38 C)?: No Have you tested positive for COVID-19?: No Exposed to someone with COVID-19 in past 14 days?: No Do you have a sore throat?: No Do you have a cough?: No Do you have any weakness?: No Are you experiencing any nausea/vomitting?: No Do you have any diarrhea?: No Are you experiencing any unusual bleeding?: No Do you have any muscle aches/pain?: No Do you have any abdominal pain?: No Are you experiencing loss of taste or smell?: No [facility] Anesthesia Checklist Patient Identification Patient Identification: Arm Band Structural Data Admitted From: Home Planned Operative Procedure/s: Colonoscopy Consent for Planned Operative Procedure(s) Verified: Yes Verified Documents: Surgical Consent and History and Physical NPO Status Verified Time NPO: 06:30 (finished prep) Additional verifications Anesthesia Reactions: No Hx Blood Transfusions: No Blood Transfusion Reaction: No Airway Assessment Mallampati Score:: Class II C-Spine Mobility Assessed: Yes TMJ Mobility Assessed: Yes Dentition: Good Dentition Neurological Assessment Level of Consciousness: Awake, Alert and Appropriate Anesthesia Plan Anesthesia Risk discussed: Yes Anesthesia Plan: Verified ASA Class: II Anesthesia Type: MAC
--- NOTE | 2025-08-02 08:47 | HMH.PROCNOTE ---
[facility] Procedure Note Date: 08/02/25 Time: 09:08 Procedure Note:: Colonoscopy Procedure Report: Colonoscopy with cold snare polypectomy and snare cautery Endoscopist: Fernando Iyer II, MD Referring physician: Nicholas Gómez MD Date of Procedure: August 02, 2025 Equipment: Olympus [id number] adult colonoscope Sedation: MAC sedation Indication: Mr. Khan is a 49-year-old gentleman who is here for initial screening colonoscopy. The patient's father had a malignant colon polyp and had colon resection in his early 50s. The patient reports no abdominal pain, weight loss, change in his bowel habits or rectal bleeding. The examination is deemed medically necessary for screening colonoscopy. Procedure: Prior to the procedure, a history and physical exam was performed, and patient's medications and allergies were reviewed. The risks, benefits and alternatives of the sedation and procedure were discussed with the patient. All questions were answered and informed consent was obtained. The patient was brought to the procedure room. Patient identification and proposed procedure were verified by the physician and the nurse. The patient was placed in a left lateral decubitus position and the scope was passed under direct vision. Throughout the procedure, the patient's blood pressure, pulse, and oxygen saturations were monitored continuously. The colonoscopy was accomplished without difficulty. The patient tolerated the procedure well. Findings: On digital rectal examination there was normal rectal tone. There was some mild anal fibrosis/stenosis. There was a posterior midline anal tag. The prostate was 2+, smooth, soft, symmetric without nodules. The colonoscope was introduced through the anal canal to the rectum and advanced to the cecum. The ileocecal valve and appendiceal orifice were identified. The scope was advanced a short distance into the ileum which appeared grossly normal. The scope was then withdrawn into the colon. There were 5 colon polyps (transverse x 2 (4 and 4 mm), descending x 1 (4 mm) and sigmoid x 2 (3 and 8 mm)). The smaller polyps were removed via cold snare polypectomy. The 8 mm polyp was pedunculated and removed via snare cautery. The remaining cecum, ascending, transverse, descending, sigmoid and rectum were grossly normal. There were no other mucosal abnormalities identified. Upon retroflexion within the rectum there were grade 1-2 internal hemorrhoids. The preparation was excellent throughout with Moneta Preparation Score of 9. The cecal time was 12 minutes. Impression: 1. Colonic polyps x 5 2. Grade 1-2 internal hemorrhoids with external posterior midline anal tag (from prior healed anal fissure) Plan: I will follow-up the polyp histology and recommend repeat screening/surveillance colonoscopy again in 3 to 5 years based upon the pathology. I would encourage psyllium bulking fiber supplementation on a long-term daily maintenance basis.
[2025-08-02 09:07] VITALS: BP 86/58; PULSE 74; RESP 18; TEMP 36.2; O2SAT 97
[2025-08-02 09:17] VITALS: BP 94/50; PULSE 75; RESP 18; TEMP 36.2; O2SAT 98
[2025-08-02 09:27] VITALS: BP 98/56; PULSE 73; RESP 18; TEMP 36.2; O2SAT 98
[2025-08-02 09:37] VITALS: BP 113/67; PULSE 71; RESP 18; TEMP 36.2; O2SAT 96
[2025-08-02 19:36] LABS: POC Glucose,Bedside 170 gm/dL (70-110)
== END 2025-08-02 09:45 | disposition home or self-care (01) ==
PROVIDERS: PCP Family Medicine; Visit Provider Internal Medicine Gastroenterology
PROC: 0DJD8ZZ Inspection of Lower Intestinal Tract, Via Natural or Artificial Opening Endoscopic (ICD-10-PCS; CPT 45378; principal; 2025-08-02 09:00)
DX: Z12.11 Encounter for screening for malignant neoplasm of colon (principal); D12.4 Benign neoplasm of descending colon; D12.5 Benign neoplasm of sigmoid colon; D12.3 Benign neoplasm of transverse colon; K64.1 Second degree hemorrhoids; K64.4 Residual hemorrhoidal skin tags; Z80.0 Family history of malignant neoplasm of digestive organs; E11.9 Type 2 diabetes mellitus without complications; I10 Essential (primary) hypertension; K21.9 Gastro-esophageal reflux disease without esophagitis; F41.9 Anxiety disorder, unspecified; F17.210 Nicotine dependence, cigarettes, uncomplicated; Z79.899 Other long term (current) drug therapy; Z79.84 Long term (current) use of oral hypoglycemic drugs
CPT/HCPCS: 45385; 82962; J2003; J2704; J7120